=== PATIENT | female | born 1995 | race Caucasian/White ===

== ENCOUNTER 2016-08-11 10:11 | Emergency (ER) | payer SELFPAY ==
[~2016-08-11] VITALS: Ht 165.1 cm; Wt 86.2 kg
[~2016-08-11 10:11] MED LIST: mirena
[2016-08-11 10:59] LABS: BILIRUBIN,URINE NEGATIVE (NEG); GLUCOSE,URINE NEGATIVE (NEG); NITRITE,URINE NEGATIVE (NEG); PROTEIN,URINE NEGATIVE (NEG-TRACE); UROBILINOGEN,URINE 0.2 mg/dL (0.2 mg/dL)
[2016-08-11 11:15] LABS: BACTERIA,URINE 0 /HPF (0-FEW); RBC,URINE OCC /HPF (0-2); SQUAMOUS EPITHELIAL CELL,UR FEW /LPF; WBC,URINE 0 /HPF (0-4)
--- NOTE | 2016-08-11 11:46 | RAD ---
Indication abdominal pain. Nausea and vomiting. Duration of symptoms 2 days. Single view of the chest as well as flat and upright films of the abdomen were obtained. The heart, pulmonary vessels and mediastinum appear normal. The lungs are clear. There is no free air. The abdominal gas pattern is normal. No organomegaly or abnormal calculi are seen. IUD is noted. Visualized bony structures appear grossly intact. IMPRESSION: No acute or significant finding seen in the chest or abdomen on plain films
--- NOTE | 2016-08-11 11:54 | ED.ADGEN ---
Past Medical History Past Medical History: No Pertinent History Past Surgical History: Tonsillectomy Alcohol Use: Rarely Drug Use: Marijuana Adult General Chief Complaint Chief Complaint: ABDOMINAL PAIN HPI HPI Patient is a 20 year old woman, with no significant past history, who presents emergency Department with complaint of abdominal cramping and pain in the pelvic region. Patient states that she has an IUD in place, states that her periods are irregular. She denies any possibility of STI exposures. States the pain began yesterday has been intermittent since that time, described as a cramping. She completed of mild nausea, denies any vomiting, denies any diarrhea , any chest pain or shortness of breath, any fevers or chills, any urinary complaints, any flank pain. No injuries. Review of Systems Review of Systems Constitutional: Denies fever or chills. [] Eyes: Denies change in visual acuity. [] HENT: Denies nasal congestion or sore throat. [] Respiratory: Denies cough or shortness of breath. [] Cardiovascular: Denies chest pain or edema. [] GI: Abdominal pain, pelvic region, nausea, no vomiting, no diarrhea or bloody stools. I : Denies dysuria. [] Musculoskeletal: Denies back pain or joint pain. [] Integument: Denies rash. [] Neurologic: Denies headache, focal weakness or sensory changes. [] Endocrine: Denies polyuria or polydipsia. [] Lymphatic: Denies swollen glands. [] Psychiatric: Denies depression or anxiety. [] Current Medications Current Medications Current Medications Medications (Trade) Dose Ordered Sig/Huyen Start Time Stop Time Status Last Admin Dose Admin Acetaminophen (Tylenol) 650 mg 1X ONCE 08/11/16 13:15 08/11/16 13:16 DC 08/11/16 13:51 650 MG Metronidazole (Flagyl) 500 mg 1X ONCE 08/11/16 13:15 08/11/16 13:16 DC 08/11/16 13:51 500 MG Allergies Allergies Allergies Coded Allergies Type Severity Reaction Last Updated Verified No Known Drug Allergies 04/28/15 No Physical Exam Physical Exam Constitutional: Well developed, well nourished, no acute distress, non-toxic appearance. [] HENT: Normocephalic, atraumatic, bilateral external ears normal, oropharynx moist, no oral exudates, nose normal. [] Eyes: PERRLA, EOMI, conjunctiva normal, no discharge. [] Neck: Normal range of motion, no tenderness, supple, no stridor. [] Cardiovascular:Heart rate regular rhythm, no murmur, S1, S2, no rubs or gallops. [] Lungs & Thorax: Bilateral breath sounds clear to auscultation, no wheezing, rhonchi, rales. No chest or crepitus or tenderness. [] Abdomen: Bowel sounds normal, soft, mild initial patient in the pelvic region, superior pubic region, no rebound, rigidity, no guarding, no masses, no pulsatile masses. [] Skin: Warm, dry, no erythema, no rash. [] Back: No tenderness, no CVA tenderness. [] Extremities: No tenderness, no cyanosis, no clubbing, ROM intact, no edema. [] Neurologic: Alert and oriented X 3, normal motor function, normal sensory function, no focal deficits noted. [] Psychologic: Affect normal, judgement normal, mood normal. [] Pelvic examination: Patient with a normal-appearing external examination, bimanual examination reveals a closed os with an IUD in place, no CMT, no adnexal masses or tenderness identified, patient with small amount of dark blood noted in vault, consistent with early menses. Speculum examination reveals findings as above, nonfriable cervix, small amount of white discharge in addition to the menstrual bleeding, no large clots, no lacerations or other abnormalities identified. Current Patient Data Vital Signs Vital Signs Date Time Temp Pulse Resp B/P (MAP) Pulse Ox O2 Delivery O2 Flow Rate FiO2 08/11/16 13:30 66 18 117/74 (88) 99 Room Air 08/11/16 10:30 98.4 98.4 Lab Values Laboratory Tests Test 08/11/16 09:51 08/11/16 10:30 POC Urine HCG, Qualitative Hcg negative (Negative) Urine Collection Type Unknown Urine Color Kaylen Urine Clarity Clear Urine pH 7.0 Urine Specific [place] 1.015 Urine Protein Negative mg/dL (NEG-TRACE) Urine Glucose (UA) Negative mg/dL (NEG) Urine Ketones (Stick) Negative mg/dL (NEG) Urine Blood Moderate (NEG) Urine Nitrite Negative (NEG) Urine Bilirubin Negative (NEG) Urine Urobilinogen Dipstick 0.2 mg/dL (0.2 mg/dL) Urine Leukocyte Esterase Negative (NEG) Urine RBC Occ /HPF (0-2) Urine WBC 0 /HPF (0-4) Urine Squamous Epithelial Cells Few /LPF Urine Bacteria 0 /HPF (0-FEW) Microbiology 08/11/16 Wet Prep - Final, Complete EKG EKG Not indicated. [] Radiology/Procedures Radiology/Procedures [][facility] [address] [place] [address] IMAGING REPORT Signed PATIENT: OCTAVIO GUPTA ACCOUNT: [id number] : 1995 LOCATION: ER AGE: 20 SEX: F EXAM STATUS: REG ER ORD. PHYSICIAN: ERNESTO ROSE DO REASON: abd pain/n/v PROCEDURE: ACUTE ABDOMEN SERIES Indication abdominal pain. Nausea and vomiting. Duration of symptoms 2 days. Single view of the chest as well as flat and upright films of the abdomen were obtained. The heart, pulmonary vessels and mediastinum appear normal. The lungs are clear. There is no free air. The abdominal gas pattern is normal. No organomegaly or abnormal calculi are seen. IUD is noted. Visualized bony structures appear grossly intact. IMPRESSION: No acute or significant finding seen in the chest or abdomen on plain films DICTATED and SIGNED BY: MEREDITH ARAUJO MD DATE: 08/11/16 1143 CC: ERNESTO ROSE DO; NO PCP ~ Course & Med Decision Making Course & Med Decision Making Pertinent Labs and Imaging studies reviewed. (See chart for details) Patient with her menses beginning in the emergency department, which I believe is likely contributed a cramping sensation she is feeling, vital signs within normal limits, wet prep is positive for bacterial vaginosis, urinalysis negative for infection. Received acetaminophen and metronidazole in the emergency department which she tolerated without issue. Given clear and detailed return instructions medication instructions and precautions. Also given contact information for Dr. Collins DEMOLITION WORKER in order to establish follow- up. Will be contacted for cultures require follow-up, as stated she denies any concerns for STI exposure. Patient voiced understanding and agreement with plan as stated, discharged home in stable condition with plan as above. Dragon Disclaimer Dragon Disclaimer This electronic medical record was generated, in whole or in part, using a voice recognition dictation system. Departure Impression: Primary Impression: Bacterial vaginosis Disposition: HOME, SELF-CARE Condition: IMPROVED Scripts Metronidazole (METRONIDAZOLE) 500 Mg Tablet 1 TAB PO BID, #14 TAB Prov: ERNESTO ROSE DO 08/11/16 ERNESTO ROSE DO August 11, 2016 11:54
[2016-08-11] MEDS ORDERED: metroNIDAZOLE 500 MG TABLET PO ONE (13:15)
[2016-08-11] MEDS ORDERED: ACETAMINOPHEN 325 MG TABLET. PO ONE (13:15)
[2016-08-11 13:30] VITALS: BP 117/74
[2016-08-11] MEDS ORDERED: METR500T8 PO (13:41)
== END 2016-08-11 13:54 | disposition home or self-care (01) ==
LOC: ER 10:11
DX: N76.0 Acute vaginitis (principal); B96.89 Other specified bacterial agents as the cause of diseases classified elsewhere; F12.10 Cannabis abuse, uncomplicated
CPT/HCPCS: 74022; 81001; 84703; 87491; 87591; 99285; Q0111; 81025

== ENCOUNTER 2016-12-18 12:22 | Emergency (ER) | payer BC ==
[~2016-12-18 12:22] MED LIST changes: +METR500T8 PO
--- NOTE | 2016-12-18 12:32 | PHYS DOC ---
Past Medical History Past Medical History: No Pertinent History Past Surgical History: Tonsillectomy Alcohol Use: Rarely Drug Use: Marijuana Adult General Chief Complaint Chief Complaint: VOMITING IN HPI HPI Patient is a 21 year old female who presents with nausea vomiting for last 3 days. She states she is approximately 7 weeks and 3 days ago started having episodes of vomiting. She states she has dry heaves even when she is not trying to eat or drink. She denies any abdominal pain vaginal bleeding or cramps. She has never been before. She is currently on no medicines and has not tried anything for her nausea as of yet. She does have an [facility] physician as well as to see them on 23 December and she is currently taking vitamins. Review of Systems Review of Systems Constitutional: Denies fever or chills [] Eyes: Denies change in visual acuity, redness, or eye pain [] HENT: Denies nasal congestion or sore throat [] Respiratory: Denies cough or shortness of breath [] Cardiovascular: No additional information not addressed in HPI [] GI: Denies abdominal pain, bloody stools or diarrhea, positive for nausea, vomiting [] : Denies dysuria or hematuria [] Musculoskeletal: Denies back pain or joint pain [] Integument: Denies rash or skin lesions [] Neurologic: Denies headache, focal weakness or sensory changes [] Endocrine: Denies polyuria or polydipsia [] Current Medications Current Medications Current Medications Medications (Trade) Dose Ordered Sig/Huyen Start Time Stop Time Status Last Admin Dose Admin Ondansetron HCl (Zofran) 4 mg 1X ONCE 12/18/16 13:15 12/18/16 13:16 DC 12/18/16 13:20 4 MG Sodium Chloride 1,000 ml @ 1,000 mls/hr 1X ONCE 12/18/16 14:30 12/18/16 15:29 Allergies Allergies Allergies Coded Allergies Type Severity Reaction Last Updated Verified No Known Drug Allergies 04/28/15 No Physical Exam Physical Exam Constitutional: Well developed, well nourished, no acute distress, non-toxic appearance. [] HENT: Normocephalic, atraumatic, bilateral external ears normal, oropharynx moist, no oral exudates, nose normal. [] Eyes: PERRLA, EOMI, conjunctiva normal, no discharge. [] Neck: Normal range of motion, no tenderness, supple, no stridor. [] Cardiovascular:Heart rate regular rhythm, no murmur [] Lungs & Thorax: Bilateral breath sounds clear to auscultation [] Abdomen: Bowel sounds normal, soft, no tenderness, no masses, no pulsatile masses. [] Skin: Warm, dry, no erythema, no rash. [] Back: No tenderness, no CVA tenderness. [] Extremities: No tenderness, no cyanosis, no clubbing, ROM intact, no edema. [] Neurologic: Alert and oriented X 3, normal motor function, normal sensory function, no focal deficits noted. [] Psychologic: Affect normal, judgement normal, mood normal. [] Current Patient Data Vital Signs Vital Signs Date Time Temp Pulse Resp B/P (MAP) Pulse Ox O2 Delivery O2 Flow Rate FiO2 12/18/16 14:38 98.1 99 16 128/64 (85) 100 Room Air 98.1 Lab Values Laboratory Tests Test 12/18/16 12:45 12/18/16 12:48 Urine Color Yellow Urine Clarity Turbid Urine pH 7.5 Urine Specific [place] 1.020 Urine Protein Negative mg/dL (NEG-TRACE) Urine Glucose (UA) Negative mg/dL (NEG) Urine Ketones (Stick) Negative mg/dL (NEG) Urine Blood Negative (NEG) Urine Nitrite Negative (NEG) Urine Bilirubin Negative (NEG) Urine Urobilinogen Dipstick 1.0 mg/dL (0.2 mg/dL) Urine Leukocyte Esterase Negative (NEG) Urine RBC 0 /HPF (0-2) Urine WBC Occ /HPF (0-4) Urine Squamous Epithelial Cells Occ /LPF Urine Amorphous Sediment Present /HPF Urine Bacteria 0 /HPF (0-FEW) White Blood Count 12.5 x10^3/uL (4.0-11.0) H Red Blood Count 4.66 x10^6/uL (3.50-5.40) Hemoglobin 13.4 g/dL (12.0-15.5) Hematocrit 40.5 % (36.0-47.0) Mean Corpuscular Volume 87 fL (79-100) Mean Corpuscular Hemoglobin 29 pg (25-35) Mean Corpuscular Hemoglobin Concent 33 g/dL (31-37) Red Cell Distribution Width 13.4 % (11.5-14.5) Platelet Count 319 x10^3/uL (140-400) Neutrophils (%) (Auto) 62 % (31-73) Lymphocytes (%) (Auto) 31 % (24-48) Monocytes (%) (Auto) 6 % (0-9) Eosinophils (%) (Auto) 1 % (0-3) Basophils (%) (Auto) 0 % (0-3) Neutrophils # (Auto) 7.8 x10^3uL (1.8-7.7) H Lymphocytes # (Auto) 3.8 x10^3/uL (1.0-4.8) Monocytes # (Auto) 0.7 x10^3/uL (0.0-1.1) Eosinophils # (Auto) 0.1 x10^3/uL (0.0-0.7) Basophils # (Auto) 0.0 x10^3/uL (0.0-0.2) Sodium Level 139 mmol/L (136-145) Potassium Level 4.0 mmol/L (3.5-5.1) Chloride Level 102 mmol/L (98-107) Carbon Dioxide Level 27 mmol/L (21-32) Anion Gap 10 (6-14) Blood Urea Nitrogen 10 mg/dL (7-20) Creatinine 0.7 mg/dL (0.6-1.0) Estimated GFR (Cockcroft-Gault) 105.6 BUN/Creatinine Ratio 14 (6-20) Glucose Level 86 mg/dL (70-99) Calcium Level 9.1 mg/dL (8.5-10.1) Total Bilirubin 0.6 mg/dL (0.2-1.0) Aspartate Amino Transferase (AST) 19 U/L (15-37) Alanine Aminotransferase (ALT) 24 U/L (14-59) Alkaline Phosphatase 103 U/L (46-116) Total Protein 8.1 g/dL (6.4-8.2) Albumin 4.0 g/dL (3.4-5.0) Albumin/Globulin Ratio 1.0 (1.0-1.7) Laboratory Tests 12/18/16 12:48 Laboratory Tests 12/18/16 12:48 EKG EKG [] Radiology/Procedures Radiology/Procedures [] Impressions: Nausea vomiting in Course & Med Decision Making Course & Med Decision Making Pertinent Labs and Imaging studies reviewed. (See chart for details) CBC, CMP, UA nonacute. Patient felt better with Zofran and 2 L of fluids. She being discharged at this time to [id number] V6. Return precautions given. She is agreeable plan in stable condition this time. Dragon Disclaimer Dragon Disclaimer This electronic medical record was generated, in whole or in part, using a voice recognition dictation system. Departure Departure Impression: Primary Impression: Nausea/vomiting in Disposition: 01 HOME, SELF-CARE Condition: STABLE Referrals: NO PCP (PCP) Patient Instructions: Nausea and Vomiting Additional Instructions: You were seen today in the emergency department for nausea and vomiting in . Your blood work and urinalysis do not show any acute abnormalities. He felt better after received Zofran and IV fluids. Your being discharged home. Please push fluids over the next several days. Please: Reschedule your [facility] appointment CBC in the next couple days. He can take [id number] Pyridoxine , which is vitamin B6 for nausea. You can take 75 mg daily for nausea. Return the ER if you have severe uncontrolled nausea vomiting, vaginal bleeding, pain in your abdomen we have other concerns. CHEPE CALL MD Dec 18, 2016 12:32
[2016-12-18] MEDS ORDERED: IV NORMAL SALINE 1000ML BAG 1,000 ML IV ONE ×2 (13:15→14:30)
[2016-12-18] MEDS ORDERED: ONDANSETRON PF 4 MG/2 ML VIAL. IV ONE (13:15)
[2016-12-18 13:22] LABS: BASO % 0 % (0-3); EOS % 1 % (0-3); HEMATOCRIT 40.5 % (36.0-47.0); HEMOGLOBIN 13.4 g/dL (12.0-15.5); LYMPH # 3.8 x10^3/uL (1.0-4.8); LYMPH % 31 % (24-48); MEAN CORPUSCULAR HEMOGLOBIN 29 pg (25-35); MEAN CORPUSCULAR HGB CONC 33 g/dL (31-37); MEAN CORPUSCULAR VOLUME 87 fL (79-100); MONO % 6 % (0-9); NEUT % 62 % (31-73); PLATELET COUNT 319 x10^3/uL (140-400); RED BLOOD COUNT 4.66 x10^6/uL (3.50-5.40); RED CELL DISTRIBUTION WIDTH 13.4 % (11.5-14.5); WHITE BLOOD COUNT 12.5 x10^3/uL (4.0-11.0)
[2016-12-18 13:49] LABS: CALCIUM 9.1 mg/dL (8.5-10.1); CREATININE 0.7 mg/dL (0.6-1.0); GFR 105.6
[2016-12-18 13:54] LABS: TOTAL BILIRUBIN 0.6 mg/dL (0.2-1.0); TOTAL PROTEIN 8.1 g/dL (6.4-8.2)
[2016-12-18 14:00] LABS: BILIRUBIN,URINE NEGATIVE (NEG); GLUCOSE,URINE NEGATIVE (NEG); NITRITE,URINE NEGATIVE (NEG); PH,URINE 7.5; PROTEIN,URINE NEGATIVE (NEG-TRACE)
[2016-12-18 14:17] LABS: BACTERIA,URINE 0 /HPF (0-FEW); RBC,URINE 0 /HPF (0-2); SQUAMOUS EPITHELIAL CELL,UR OCC /LPF; WBC,URINE OCC /HPF (0-4)
[2016-12-18 15:35] VITALS: BP 118/59
== END 2016-12-18 15:41 | disposition home or self-care (01) ==
LOC: ER 12:22
DX: O21.9 Vomiting of pregnancy, unspecified (principal); O26.891 Other specified pregnancy related conditions, first trimester; F12.10 Cannabis abuse, uncomplicated; Z3A.01 Less than 8 weeks gestation of pregnancy
CPT/HCPCS: 36415; 80053; 81001; 81025; 85025; 96361; 96374; 99285; J2405; J7030

== ENCOUNTER 2017-01-08 14:13 | Emergency (ER) | payer BC ==
[2017-01-08] MEDS ORDERED: PROMETHAZINE IV PRN (14:30)
[2017-01-08] MEDS ORDERED: IV NORMAL SALINE 1000ML BAG 1,000 ML IV ONE (14:30)
[2017-01-08] MEDS ORDERED: DEXTROSE 5% IV PRN (14:30)
[2017-01-08] MEDS ORDERED: ONDANSETRON PF 4 MG/2 ML VIAL. IV ONE (14:30)
--- NOTE | 2017-01-08 14:36 | PHYS DOC ---
Past Medical History Past Medical History: No Pertinent History Past Surgical History: Tonsillectomy Alcohol Use: Rarely Drug Use: Marijuana Adult General Chief Complaint Chief Complaint: VOMITING IN HPI HPI Patient is a 21 year old female 1 para 0 currently 10 weeks who presents today with nausea and vomiting that has been going on intermittently during this but got worse in the last 5 days. Patient states she was seen by the PCP on December 24, 2016 for the same complaints and was started on Zofran and Reglan. Patient denies any relief from these medications. Denies any abdominal pain. Denies any fever. Denies any vaginal bleeding. Review of Systems Review of Systems Constitutional: Denies fever or chills [] Eyes: Denies change in visual acuity, redness, or eye pain [] HENT: Denies nasal congestion or sore throat [] Respiratory: Denies cough or shortness of breath [] Cardiovascular: No additional information not addressed in HPI [] GI: nausea, and vomiting, in . Denies abdominal pain, bloody stools or diarrhea [] : Denies dysuria or hematuria [] Musculoskeletal: Denies back pain or joint pain [] Integument: Denies rash or skin lesions [] Neurologic: Denies headache, focal weakness or sensory changes [] Current Medications Current Medications Current Medications Medications (Trade) Dose Ordered Sig/Huyen Start Time Stop Time Status Last Admin Dose Admin Ceftriaxone Sodium 50 ml @ 100 mls/hr 1X ONCE 01/08/17 15:45 01/08/17 16:14 Ondansetron HCl (Zofran) 4 mg 1X ONCE 01/08/17 14:30 01/08/17 14:31 DC 01/08/17 14:30 4 MG Promethazine HCl 6.25 mg/Dextrose 50.25 ml @ 150.75 mls/ hr PRN Q6HRS PRN 01/08/17 14:30 01/08/17 14:52 150.75 MLS/HR Sodium Chloride 1,000 ml @ 1,000 mls/hr 1X ONCE 01/08/17 14:30 01/08/17 15:29 DC 01/08/17 14:30 1,000 MLS/HR Allergies Allergies Allergies Coded Allergies Type Severity Reaction Last Updated Verified No Known Drug Allergies 04/28/15 No Physical Exam Physical Exam Constitutional: Well developed, well nourished, no acute distress, non-toxic appearance. [] HENT: Normocephalic, atraumatic, bilateral external ears normal, oropharynx moist, no oral exudates, nose normal. [] Eyes: PERRLA, EOMI, conjunctiva normal, no discharge. [] Neck: Normal range of motion, no tenderness, supple, no stridor. [] Cardiovascular:Heart rate regular rhythm, no murmur [] Lungs & Thorax: Bilateral breath sounds clear to auscultation [] Abdomen: Bowel sounds normal, soft, no tenderness, no masses, no pulsatile masses. Patient is actively vomiting in the ED. Skin: Warm, dry, no erythema, no rash. [] Back: No tenderness, no CVA tenderness. [] Extremities: No tenderness, no cyanosis, no clubbing, ROM intact, no edema. [] Neurologic: Alert and oriented X 3, normal motor function, normal sensory function, no focal deficits noted. [] Psychologic: Affect normal, judgement normal, mood normal. [] Current Patient Data Vital Signs Vital Signs Date Time Temp Pulse Resp B/P (MAP) Pulse Ox O2 Delivery O2 Flow Rate FiO2 01/08/17 14:54 98.0 81 18 102/81 (88) Room Air 97.0 98.0 Lab Values Laboratory Tests Test 01/08/17 14:17 01/08/17 14:22 01/08/17 14:41 Urine Collection Type Unknown Urine Color Yellow Urine Clarity Cloudy Urine pH 7.0 Urine Specific [place] 1.025 Urine Protein Negative mg/dL (NEG-TRACE) Urine Glucose (UA) Negative mg/dL (NEG) Urine Ketones (Stick) 40 mg/dL (NEG) Urine Blood Negative (NEG) Urine Nitrite Negative (NEG) Urine Bilirubin Negative (NEG) Urine Urobilinogen Dipstick 1.0 mg/dL (0.2 mg/dL) Urine Leukocyte Esterase Small (NEG) Urine RBC 0 /HPF (0-2) Urine WBC 0 /HPF (0-4) Urine Squamous Epithelial Cells Many /LPF Urine Amorphous Sediment Present /HPF Urine Bacteria 0 /HPF (0-FEW) Urine Mucus Marked /LPF POC Urine HCG, Qualitative Hcg positive (Negative) White Blood Count 11.8 x10^3/uL (4.0-11.0) H Red Blood Count 4.60 x10^6/uL (3.50-5.40) Hemoglobin 12.9 g/dL (12.0-15.5) Hematocrit 39.2 % (36.0-47.0) Mean Corpuscular Volume 85 fL (79-100) Mean Corpuscular Hemoglobin 28 pg (25-35) Mean Corpuscular Hemoglobin Concent 33 g/dL (31-37) Red Cell Distribution Width 13.2 % (11.5-14.5) Platelet Count 279 x10^3/uL (140-400) Neutrophils (%) (Auto) 70 % (31-73) Lymphocytes (%) (Auto) 25 % (24-48) Monocytes (%) (Auto) 5 % (0-9) Eosinophils (%) (Auto) 0 % (0-3) Basophils (%) (Auto) 0 % (0-3) Neutrophils # (Auto) 8.2 x10^3uL (1.8-7.7) H Lymphocytes # (Auto) 3.0 x10^3/uL (1.0-4.8) Monocytes # (Auto) 0.6 x10^3/uL (0.0-1.1) Eosinophils # (Auto) 0.0 x10^3/uL (0.0-0.7) Basophils # (Auto) 0.0 x10^3/uL (0.0-0.2) Sodium Level 139 mmol/L (136-145) Potassium Level 3.7 mmol/L (3.5-5.1) Chloride Level 101 mmol/L (98-107) Carbon Dioxide Level 26 mmol/L (21-32) Anion Gap 12 (6-14) Blood Urea Nitrogen 8 mg/dL (7-20) Creatinine 0.5 mg/dL (0.6-1.0) L Estimated GFR (Cockcroft-Gault) 155.7 BUN/Creatinine Ratio 16 (6-20) Glucose Level 94 mg/dL (70-99) Calcium Level 9.6 mg/dL (8.5-10.1) Total Bilirubin 0.8 mg/dL (0.2-1.0) Aspartate Amino Transferase (AST) 16 U/L (15-37) Alanine Aminotransferase (ALT) 18 U/L (14-59) Alkaline Phosphatase 84 U/L (46-116) Total Protein 8.3 g/dL (6.4-8.2) H Albumin 3.8 g/dL (3.4-5.0) Albumin/Globulin Ratio 0.8 (1.0-1.7) L Lipase 101 U/L (73-393) Laboratory Tests 01/08/17 14:41 Laboratory Tests 01/08/17 14:41 EKG EKG [] Radiology/Procedures Radiology/Procedures [] Course & Med Decision Making Course & Med Decision Making Pertinent Labs and Imaging studies reviewed. (See chart for details) This is a 21-year-old female patient presenting to the ED today with nausea and vomiting associated with . She is a 1 para 0. She is currently 10 weeks . CBC with a WBC of 11.8, CMP would not acute findings, urine has small amount of UTI. She was given IV fluids, Compazine and promethazine. Her vomiting has stopped. She feels better. She was given Rocephin and discharged. She was discharged with Compazine and promethazine. She was also discharged with cephalexin. She was instructed to follow-up with her own [employer] on Wednesday. Dragon Disclaimer Dragon Disclaimer This electronic medical record was generated, in whole or in part, using a voice recognition dictation system. Departure Departure Impression: Primary Impression: Hyperemesis gravidarum Additional Impression: UTI (urinary tract infection) Disposition: 01 HOME, SELF-CARE Condition: STABLE Referrals: UNKNOWN PCP NAME (PCP) follow up with your OBGYN on Wednesday Patient Instructions: Diet - Hyperemesis Gravidarum, Hyperemesis Gravidarum, - Urinary Tract Infection Additional Instructions: You were seen for nausea and vomiting in . We put you Compazine and promethazine. Take them as needed for nausea/ vomiting. You also have urinary tract infection. Complete your antibiotics. Contact your [employer] MANAGER on Wednesday and set up a follow-up appointment for follow up. Scripts Promethazine Hcl (PROMETHAZINE HCL) 25 Mg Tablet 1 TAB PO PRN Q6HRS, #30 TAB Prov: MUTUNGA,MARLENY PHOTOENGRAVING APPRENTICE 01/08/17 Prochlorperazine Maleate (Compazine) 10 Mg Tablet 10 MG PO Q8HRS, #30 TAB Prov: MUTUNGA,MARLENY PHOTOENGRAVING APPRENTICE 01/08/17 Cephalexin (CEPHALEXIN) 500 Mg Tablet 1 TAB PO BID, #14 TAB Prov: MARLENY WOODARD APRN 01/08/17 Problem Qualifiers Additional Impression: UTI (urinary tract infection) Urinary tract infection type: site unspecified Hematuria presence: without hematuria Qualified Codes: N39.0 - Urinary tract infection, site not specified MARLENY WOODARD APRN Jan 08, 2017 14:36
[2017-01-08 14:38] LABS: BILIRUBIN,URINE NEGATIVE (NEG); GLUCOSE,URINE NEGATIVE (NEG); NITRITE,URINE NEGATIVE (NEG); PROTEIN,URINE NEGATIVE (NEG-TRACE)
[2017-01-08 14:46] LABS: BACTERIA,URINE 0 /HPF (0-FEW); RBC,URINE 0 /HPF (0-2); WBC,URINE 0 /HPF (0-4)
[2017-01-08 14:47] LABS: SQUAMOUS EPITHELIAL CELL,UR MANY /LPF
[2017-01-08 14:49] LABS: BASO % 0 % (0-3); EOS % 0 % (0-3); HEMATOCRIT 39.2 % (36.0-47.0); HEMOGLOBIN 12.9 g/dL (12.0-15.5); LYMPH % 25 % (24-48); MEAN CORPUSCULAR HEMOGLOBIN 28 pg (25-35); MEAN CORPUSCULAR HGB CONC 33 g/dL (31-37); MEAN CORPUSCULAR VOLUME 85 fL (79-100); MONO % 5 % (0-9); NEUT % 70 % (31-73); PLATELET COUNT 279 x10^3/uL (140-400); RED CELL DISTRIBUTION WIDTH 13.2 % (11.5-14.5); WHITE BLOOD COUNT 11.8 x10^3/uL (4.0-11.0)
[2017-01-08 15:04] LABS: CALCIUM 9.6 mg/dL (8.5-10.1); CREATININE 0.5 mg/dL (0.6-1.0); GFR 155.7; POTASSIUM 3.7 mmol/L (3.5-5.1)
[2017-01-08 15:11] LABS: ALBUMIN 3.8 g/dL (3.4-5.0); ALBUMIN/GLOBULIN RATIO 0.8 (1.0-1.7); TOTAL BILIRUBIN 0.8 mg/dL (0.2-1.0); TOTAL PROTEIN 8.3 g/dL (6.4-8.2)
[2017-01-08] MEDS ORDERED: CEPH500T PO (15:59)
[2017-01-08] MEDS ORDERED: PROM25TA10 PO (16:03)
[2017-01-08] MEDS ORDERED: PROC10TA57 PO (16:03)
[2017-01-08 16:50] VITALS: BP 105/51
[2017-01-18] MEDS ORDERED: NITR100C62 PO (22:39)
[2017-01-18] MEDS ORDERED: ONDA4TAB11 PO (22:39)
== END 2017-01-08 16:58 | disposition home or self-care (01) ==
LOC: ER 14:13
DX: O21.0 Mild hyperemesis gravidarum (principal); O23.41 Unspecified infection of urinary tract in pregnancy, first trimester; Z3A.10 10 weeks gestation of pregnancy
CPT/HCPCS: 36415; 80053; 81001; 81025; 83690; 85025; 87086; 96365; 96367; 96375; 99284; J0690; J2405; J2550; J7030

== ENCOUNTER 2017-04-29 15:38 | Emergency (ER) | payer BC, OTHER | END 2017-04-29 16:30 | disposition home or self-care (01) | LOC: ER 16:30 | DX: O9A.212 Injury, poisoning and certain other consequences of external causes complicating pregnancy, second trimester (principal); L98.8 Other specified disorders of the skin and subcutaneous tissue; T63.441A Toxic effect of venom of bees, accidental (unintentional), initial encounter; Z3A.26 26 weeks gestation of pregnancy; Y92.89 Other specified places as the place of occurrence of the external cause | CPT/HCPCS: 99281 ==

== ENCOUNTER 2017-09-23 12:11 | Emergency (ER) | payer BC, OTHER ==
[2017-09-23 12:40] LABS: URINE HCG POC HCG NEGATIVE (Negative)
[2017-09-23 12:49] LABS: BILIRUBIN,URINE NEGATIVE (NEG); CLARITY,URINE CLEAR; COLOR,URINE YELLOW; GLUCOSE,URINE NEGATIVE (NEG); NITRITE,URINE NEGATIVE (NEG); PROTEIN,URINE NEGATIVE (NEG-TRACE)
[2017-09-23] MEDS: IV NORMAL SALINE 1000ML BAG 1,000 ML IV (13:00)
[2017-09-23 13:01] LABS: BACTERIA,URINE FEW /HPF (0-FEW)
[2017-09-23 13:02] LABS: SQUAMOUS EPITHELIAL CELL,UR MOD /LPF
[2017-09-23 15:19] LABS: ADD MAN DIFF? NO
[2017-09-23 15:25] LABS: BASO % 0 % (0-3); EOS # 0.1 x10^3/uL (0.0-0.7); EOS % 1 % (0-3); HEMATOCRIT 35.2 % (36.0-47.0); HEMOGLOBIN 11.6 g/dL (12.0-15.5); LYMPH # 3.5 x10^3/uL (1.0-4.8); LYMPH % 40 % (24-48); MEAN CORPUSCULAR HEMOGLOBIN 27 pg (25-35); MEAN CORPUSCULAR HGB CONC 33 g/dL (31-37); MEAN CORPUSCULAR VOLUME 82 fL (79-100); MONO # 0.5 x10^3/uL (0.0-1.1); MONO % 6 % (0-9); NEUT # 4.7 x10^3uL (1.8-7.7); NEUT % 53 % (31-73); PLATELET COUNT 308 x10^3/uL (140-400); RED BLOOD COUNT 4.31 x10^6/uL (3.50-5.40); WHITE BLOOD COUNT 8.8 x10^3/uL (4.0-11.0)
[2017-09-23 15:35] LABS: ANION GAP 6 (6-14); BLOOD UREA NITROGEN 11 mg/dL (7-20); BUN/CREATININE RATIO 18 (6-20); CALCIUM 8.6 mg/dL (8.5-10.1); CARBON DIOXIDE 22 mmol/L (21-32); CHLORIDE 105 mmol/L (98-107); CREATININE 0.6 mg/dL (0.6-1.0); GLUCOSE 86 mg/dL (70-99); POTASSIUM 3.8 mmol/L (3.5-5.1); SODIUM 133 mmol/L (136-145)
[2017-09-23 15:50] LABS: ALBUMIN 3.6 g/dL (3.4-5.0); ALBUMIN/GLOBULIN RATIO 0.9 (1.0-1.7); ALK PHOS 107 U/L (46-116); ALT (SGPT) 16 U/L (14-59); AST (SGOT) 21 U/L (15-37); LIPASE 101 U/L (73-393); TOTAL BILIRUBIN 0.6 mg/dL (0.2-1.0); TOTAL PROTEIN 7.8 g/dL (6.4-8.2)
[2017-09-23] MEDS: fentaNYL PF VIAL 100 MCG/2 ML VIAL IV (16:31)
[2017-09-23] MEDS: ONDANSETRON PF 4 MG/2 ML VIAL. IV (16:32)
== END 2017-09-23 17:26 | disposition home or self-care (01) ==
LOC: ER 17:26
DX: K80.20 Calculus of gallbladder without cholecystitis without obstruction (principal)
CPT/HCPCS: 36415; 76705; 80053; 81001; 81025; 83690; 85025; 87086; 96361; 96374; 96375; 99285-25; J2405; J3010; J7030

== ENCOUNTER → 2017-10-07 | Day surgery (SDC) | payer BC, OTHER ==
[~2017-10-07] MED LIST changes: +DEXAMETHASONE SOD PHOS 20 MG/5 ML VIAL.; +GLYCOPYRROLATE 1 MG/5 ML VIAL.; +IOHEXOL 300 MG/ML 100ML VIAL.; +LIDOCAINE 1% PF 2 ML VIAL. ID; +LIDOCAINE 2% PF Vial for OR 5 ML VIAL.; -METR500T8 PO; +MIDAZOLAM HCL/PF 2 MG/2 ML VIAL.; +NEOSTIGMINE METHYLSULFATE 5 MG/5 ML SYRINGE.; +ONDANSETRON PF 4 MG/2 ML VIAL.; +ONDANSETRON PF 4 MG/2 ML VIAL. IV; +PROPOFOL 20 ML IV; +ROCURONIUM 50 MG/5 ML VIAL.; +SEVOFLURANE 31 TO 60 MINUTES. IH; +SURGICEL HEMOSTAT 4X8 EACH.; +ceFAZolin 2GM PREMIX 2 GM/50 ML BAG IV; +fentaNYL PF VIAL 100 MCG/2 ML VIAL IV; +fentaNYL PF VIAL 250 MCG/5 ML VIAL; -mirena; +oxyCODONE/APAP 5/325 1 TAB TABLET PO
[2017-10-07] MEDS: IV RINGERS,LACTATED 1000ML 1,000 ML IV (07:25)
[2017-10-07] MEDS: BUPIVACAINE-EPI 0.25%-1:200000 50 ML VIAL. (08:49)
[2017-10-07] MEDS: fentaNYL PF VIAL 100 MCG/2 ML VIAL IV ×4 (08:56→09:33)
[2017-10-07] MEDS: MORPHINE SULFATE 2 MG/ML DISP.SYRIN. IV (09:09)
[2017-10-07] MEDS: PROCHLORPERAZINE 10 MG/2 ML VIAL. IV (09:15)
[2017-10-07 09:41] LABS: NEG OBC UR NEG; POS OBC UR POS
[2017-10-07 09:42] LABS: U PREG PATIENT NEGATIVE (NEG)
[2017-10-07] MEDS: oxyCODONE/APAP 5/325 1 TAB TABLET PO (10:21)
== END | disposition home or self-care (01) ==
LOC: ENDOS 06:33
DX: K80.10 Calculus of gallbladder with chronic cholecystitis without obstruction (principal)
CPT/HCPCS: 47562; 81025; J0690; J0780; J1100; J2001; J2250; J2270; J2405; J2704; J2710; J3010; J3490; J7030; J7120; Q9967

== ENCOUNTER 2018-05-04 00:51 | Emergency (ER) | payer BC ==
[~2018-05-04] VITALS: Ht 172.7 cm; Wt 102.5 kg
[~2018-05-04 00:51] MED LIST changes: +BENZ100C PO; +CEPH500T PO; -DEXAMETHASONE SOD PHOS 20 MG/5 ML VIAL.; -GLYCOPYRROLATE 1 MG/5 ML VIAL.; +HYDR-3164 PO; -IOHEXOL 300 MG/ML 100ML VIAL.; -LIDOCAINE 1% PF 2 ML VIAL. ID; -LIDOCAINE 2% PF Vial for OR 5 ML VIAL.; +METR-34 PO; -MIDAZOLAM HCL/PF 2 MG/2 ML VIAL.; -NEOSTIGMINE METHYLSULFATE 5 MG/5 ML SYRINGE.; +NITR100C62 PO; +ONDA4TAB10 SL; +ONDA4TAB11 PO; -ONDANSETRON PF 4 MG/2 ML VIAL.; -ONDANSETRON PF 4 MG/2 ML VIAL. IV; +OXYC1TAB15 PO; +PRED50TA PO; +PROC10TA57 PO; +PROM25TA10 PO; -PROPOFOL 20 ML IV; -ROCURONIUM 50 MG/5 ML VIAL.; -SEVOFLURANE 31 TO 60 MINUTES. IH; -SURGICEL HEMOSTAT 4X8 EACH.; +VENTOLIN HFA18 GM INH; -ceFAZolin 2GM PREMIX 2 GM/50 ML BAG IV; -fentaNYL PF VIAL 100 MCG/2 ML VIAL IV; -fentaNYL PF VIAL 250 MCG/5 ML VIAL; +mirena; -oxyCODONE/APAP 5/325 1 TAB TABLET PO
[2018-05-04] MEDS ORDERED: IV NORMAL SALINE 1000ML BAG 1,000 ML IV ONE (01:30)
[2018-05-04] MEDS ORDERED: FAMOTIDINE 20 MG/2 ML VIAL IVP ONE (01:30)
[2018-05-04] MEDS ORDERED: ONDANSETRON PF 4 MG/2 ML VIAL. IV ONE (01:30)
[2018-05-04 01:46] LABS: CREATININE 0.8 mg/dL (0.6-1.0); GFR 89.7; POTASSIUM 3.7 mmol/L (3.5-5.1)
[2018-05-04 01:52] LABS: ALBUMIN/GLOBULIN RATIO 0.9 (1.0-1.7); TOTAL BILIRUBIN 0.5 mg/dL (0.2-1.0); TOTAL PROTEIN 8.6 g/dL (6.4-8.2)
[2018-05-04 01:55] LABS: BILIRUBIN,URINE NEGATIVE (NEG); CLARITY,URINE CLEAR; COLOR,URINE YELLOW; NITRITE,URINE NEGATIVE (NEG); PROTEIN,URINE 30 mg/dL (NEG-TRACE)
[2018-05-04 01:56] LABS: BASO % 0 % (0-3); EOS % 0 % (0-3); HEMATOCRIT 39.7 % (36.0-47.0); HEMOGLOBIN 12.7 g/dL (12.0-15.5); LYMPH # 1.4 x10^3/uL (1.0-4.8); LYMPH % 20 % (24-48); MEAN CORPUSCULAR HEMOGLOBIN 26 pg (25-35); MEAN CORPUSCULAR HGB CONC 32 g/dL (31-37); MEAN CORPUSCULAR VOLUME 81 fL (79-100); MONO # 0.8 x10^3/uL (0.0-1.1); MONO % 11 % (0-9); NEUT % 69 % (31-73); PLATELET COUNT 258 x10^3/uL (140-400); RED BLOOD COUNT 4.91 x10^6/uL (3.50-5.40); WHITE BLOOD COUNT 7.3 x10^3/uL (4.0-11.0)
[2018-05-04] MEDS ORDERED: ACETAMINOPHEN 325 MG TABLET. PO ONE (02:00)
[2018-05-04 02:07] LABS: INFLUENZA A PATIENT POSITIVE (NEGATIVE); INFLUENZA B PATIENT NEGATIVE (NEGATIVE)
[2018-05-04] MEDS ORDERED: ONDA4TAB7 PO (02:09)
[2018-05-04] MEDS ORDERED: HYDR-2761 PO (02:10)
[2018-05-04 02:13] LABS: BACTERIA,URINE MODERATE /HPF (0-FEW); RBC,URINE 0 /HPF (0-2); SQUAMOUS EPITHELIAL CELL,UR MOD /LPF
[2018-05-04 02:32] VITALS: BP 128/66
--- NOTE | 2018-05-07 21:41 | PHYS DOC ---
Past Medical History Past Medical History: No Pertinent History Past Surgical History: Cholecystectomy, Tonsillectomy, Other Additional Past Surgical Histo: adenoids Alcohol Use: Occasionally Drug Use: None, Marijuana Adult General Chief Complaint Chief Complaint: NAUSEA/VOMITING/DIARRHA HPI HPI Patient is a 22 year old female presents with her, body aches, chills, cough, nausea vomiting. Symptom onset 3 days prior to ED arrival. No dizziness, headache, shortness of breath or wheezing. No other acute symptoms or complaints. [] Review of Systems Review of Systems Review symptoms as per history of present illness. All other review symptoms are negative. All other systems were reviewed and found to be within normal limits, except as documented in this note. Current Medications Current Medications Current Medications Medications (Trade) Dose Ordered Sig/Huyen Start Time Stop Time Status Last Admin Dose Admin Acetaminophen (Tylenol) 650 mg 1X ONCE 05/04/18 02:00 05/04/18 02:01 DC 05/04/18 02:01 650 MG Famotidine (Pepcid Vial) 20 mg 1X ONCE 05/04/18 01:30 05/04/18 01:31 DC 05/04/18 01:53 20 MG Ondansetron HCl (Zofran) 8 mg 1X ONCE 05/04/18 01:30 05/04/18 01:31 DC 05/04/18 01:51 8 MG Sodium Chloride 1,000 ml @ 1,000 mls/hr 1X ONCE 05/04/18 01:30 05/04/18 02:29 DC 05/04/18 01:57 1,000 MLS/HR Allergies Allergies Allergies Coded Allergies Type Severity Reaction Last Updated Verified No Known Drug Allergies 10/07/17 No Physical Exam Physical Exam Constitutional: Well developed, well nourished, no acute distress, non-toxic appearance. [] HENT: Normocephalic, atraumatic, bilateral external ears normal, oropharynx moist, no oral exudates, nose normal. [] Eyes: PERRLA, EOMI, conjunctiva normal, no discharge. [] Neck: Normal range of motion, no tenderness, supple, no stridor. [] Cardiovascular:Heart rate regular rhythm, no murmur [] Lungs & Thorax: Bilateral breath sounds clear to auscultation [] Abdomen: Bowel sounds normal, soft, nondistended, increased bowel sounds diffuse lower abdominal cramping, pain, no focal tenderness. [] Skin: Warm, dry, no erythema, no rash. [] Back: No tenderness, no CVA tenderness. [] Extremities: No tenderness, no cyanosis, no clubbing, ROM intact, no edema. [] Neurologic: Alert and oriented X 3, normal motor function, normal sensory function, no focal deficits noted. [] Psychologic: Affect normal, judgement normal, mood normal. [] Current Patient Data Vital Signs Vital Signs Date Time Temp Pulse Resp B/P (MAP) Pulse Ox O2 Delivery O2 Flow Rate FiO2 05/04/18 02:32 88 20 128/66 (86) 99 Room Air 05/04/18 01:00 101.1 101.1 Lab Values Laboratory Tests Test 05/04/18 01:05 05/04/18 01:09 05/04/18 01:15 05/04/18 01:16 Urine Collection Type Unknown Urine Color Yellow Urine Clarity Clear Urine pH 6.0 Urine Specific [place] >=1.030 Urine Protein 30 mg/dL (NEG-TRACE) Urine Glucose (UA) Negative mg/dL (NEG) Urine Ketones (Stick) Negative mg/dL (NEG) Urine Blood Negative (NEG) Urine Nitrite Negative (NEG) Urine Bilirubin Negative (NEG) Urine Urobilinogen Dipstick 1.0 mg/dL (0.2 mg/dL) Urine Leukocyte Esterase Negative (NEG) Urine RBC 0 /HPF (0-2) Urine WBC 1-4 /HPF (0-4) Urine Squamous Epithelial Cells Mod /LPF Urine Bacteria Moderate /HPF (0-FEW) Urine Mucus Mod /LPF POC Urine HCG, Qualitative Hcg negative (Negative) White Blood Count 7.3 x10^3/uL (4.0-11.0) Red Blood Count 4.91 x10^6/uL (3.50-5.40) Hemoglobin 12.7 g/dL (12.0-15.5) Hematocrit 39.7 % (36.0-47.0) Mean Corpuscular Volume 81 fL (79-100) Mean Corpuscular Hemoglobin 26 pg (25-35) Mean Corpuscular Hemoglobin Concent 32 g/dL (31-37) Red Cell Distribution Width 16.0 % (11.5-14.5) H Platelet Count 258 x10^3/uL (140-400) Neutrophils (%) (Auto) 69 % (31-73) Lymphocytes (%) (Auto) 20 % (24-48) L Monocytes (%) (Auto) 11 % (0-9) H Eosinophils (%) (Auto) 0 % (0-3) Basophils (%) (Auto) 0 % (0-3) Neutrophils # (Auto) 5.0 x10^3uL (1.8-7.7) Lymphocytes # (Auto) 1.4 x10^3/uL (1.0-4.8) Monocytes # (Auto) 0.8 x10^3/uL (0.0-1.1) Eosinophils # (Auto) 0.0 x10^3/uL (0.0-0.7) Basophils # (Auto) 0.0 x10^3/uL (0.0-0.2) Sodium Level 138 mmol/L (136-145) Potassium Level 3.7 mmol/L (3.5-5.1) Chloride Level 100 mmol/L (98-107) Carbon Dioxide Level 25 mmol/L (21-32) Anion Gap 13 (6-14) Blood Urea Nitrogen 10 mg/dL (7-20) Creatinine 0.8 mg/dL (0.6-1.0) Estimated GFR (Cockcroft-Gault) 89.7 BUN/Creatinine Ratio 13 (6-20) Glucose Level 95 mg/dL (70-99) Calcium Level 9.0 mg/dL (8.5-10.1) Total Bilirubin 0.5 mg/dL (0.2-1.0) Aspartate Amino Transferase (AST) 22 U/L (15-37) Alanine Aminotransferase (ALT) 18 U/L (14-59) Alkaline Phosphatase 120 U/L (46-116) H Total Protein 8.6 g/dL (6.4-8.2) H Albumin 4.0 g/dL (3.4-5.0) Albumin/Globulin Ratio 0.9 (1.0-1.7) L Influenza Type A Antigen Positive (NEGATIVE) Influenza Type B Antigen Negative (NEGATIVE) Laboratory Tests 05/04/18 01:15 Laboratory Tests 05/04/18 01:15 Microbiology 05/04/18 Urine Culture - Final, Complete 05/04/18 Urine Culture Result 1 (JUD) - Final, Complete EKG EKG [] Radiology/Procedures Radiology/Procedures [] Course & Med Decision Making Course & Med Decision Making Pertinent Labs and Imaging studies reviewed. (See chart for details) Nguyen, exam consistent with flulike illness. Recommend supportive care waiting and PCP follow-up] Puneet Disclaimer Puneet Disclaimer This electronic medical record was generated, in whole or in part, using a voice recognition dictation system. Departure Departure Impression: Primary Impression: Nausea and vomiting Additional Impression: Influenza A Disposition: HOME, SELF-CARE Condition: GOOD Patient Instructions: Abdominal Pain (Nonspecific), Nausea and Vomiting, Easy- to-Read Additional Instructions: Please go home and rest. Take medications as directed and follow up with your PCP in 3-5 days if symptoms persist. Scripts Hydrocodone Bit/Acetaminophen (HYDROCODONE-APAP 5-325 ) 1 Tab Tablet 1 TAB PO PRN Q6HRS PRN for PAIN for 3 Days, #10 TAB 0 Refills Prov: SERAFIN CARTER DO 05/04/18 Ondansetron Hcl (ZOFRAN) 4 Mg Tablet 1 TAB PO Q6HRS, #10 TAB Prov: SERAFIN CARTER DO 05/04/18 Problem Qualifiers SERAFIN CARTER DO May 07, 2018 21:41
== END 2018-05-04 02:49 | disposition home or self-care (01) ==
LOC: ER 00:51
DX: J11.1 Influenza due to unidentified influenza virus with other respiratory manifestations (principal); R11.2 Nausea with vomiting, unspecified; M79.18 Myalgia, other site; R68.83 Chills (without fever); R10.31 Right lower quadrant pain; R10.32 Left lower quadrant pain; Z90.89 Acquired absence of other organs; Z90.49 Acquired absence of other specified parts of digestive tract
CPT/HCPCS: 36415; 80053; 81001; 81025; 85025; 87086; 87804; 96361; 96374; 96375; 99283; J2405; J3490; J7030; 99284

== ENCOUNTER 2019-03-18 14:42 | Emergency (ER) | payer BC ==
[~2019-03-18] VITALS: Ht 165.1 cm; Wt 104.3 kg
[~2019-03-18 14:42] MED LIST changes: +HYDR-2761 PO; +ONDA4TAB7 PO
[2019-03-18 14:58] VITALS: BP 139/85
--- NOTE | 2019-03-18 15:34 | RAD ---
Three-view right ankle radiographs 03/10/2019 CLINICAL HISTORY: Twisting injury to the right ankle. AP, lateral and oblique digital radiographs of right ankle were obtained. The right ankle mortise is intact. No fracture or dislocation of the right ankle is seen. IMPRESSION: No fracture or dislocation of the right ankle is seen. Electronically signed by: Gigi Bettencourt MD (03/18/2019 3:31 PM) [facility] [place]
--- NOTE | 2019-03-18 15:48 | PHYS DOC ---
Past Medical History Past Medical History: No Pertinent History (MARLENY WOODARD APRN) Past Surgical History: Cholecystectomy, Tonsillectomy, Other Additional Past Surgical Histo: adenoids (MARLENY WOODARD APRN) Alcohol Use: Occasionally Drug Use: Marijuana (MARLENY WOODARD APRN) Adult General Chief Complaint Chief Complaint: ANKLE PROBLEM HPI HPI Patient is a 23 year old female who presents to the ED today complaining of mild intermittent right ankle pain that began 2-3 days ago after she stepped down and twisted her ankle. Patient states the pain is worse on range of motion. Denies anything specifically relieving the pain. She also wants her umbilicus checked, she states she had laparoscopic cholecystectomy done a year ago and occasionally she notes discharge from the umbilicus. Patient denies any discharge today. Denies any fever. Denies any abdominal pain nausea vomiting. (MARLENY WOODARD APRN) Review of Systems Review of Systems Constitutional: Denies fever or chills [] GI: Drainage from the umbilicus. Denies abdominal pain, nausea, vomiting, bloody stools or diarrhea [] : Denies dysuria or hematuria [] Musculoskeletal: Reports right ankle pain Integument: Denies rash or skin lesions [] Neurologic: Denies headache, focal weakness or sensory changes [] All other systems were reviewed and found to be within normal limits, except as documented in this note. (MARLENY WOODARD APRN) Allergies Allergies Allergies Coded Allergies Type Severity Reaction Last Updated Verified No Known Drug Allergies 10/07/17 No (VINAY COSTA DO) Physical Exam Physical Exam Constitutional: Well developed, well nourished, no acute distress, non-toxic appearance. [] Abdomen: Rounded abdomen, no drainage noted at the umbilicus. Bowel sounds normal, soft, no tenderness, no masses, no pulsatile masses. [] Skin: Warm, dry, no erythema, no rash. [] Back: No tenderness, no CVA tenderness. [] Extremities: Right ankle with no obvious edema, no bruising, no ecchymosis, slight tenderness on palpation of the right lateral ankle. Full range of motion to the right ankle. +2 right pedal pulse. Cap refill less than 2 seconds the right toes. Neurologic: Alert and oriented X 3, normal motor function, normal sensory function, no focal deficits noted. [] Psychologic: Affect normal, judgement normal, mood normal. [] (MARLENY WOODARD APRN) Current Patient Data Vital Signs Vital Signs Date Time Temp Pulse Resp B/P (MAP) Pulse Ox O2 Delivery O2 Flow Rate FiO2 03/18/19 14:58 98.1 99 14 139/85 (103) 99 Room Air 98.1 (COSTAVINAY Tate DO) EKG EKG [] (MARLENY WOODARD APRN) Radiology/Procedures Radiology/Procedures []PROCEDURE: ANKLE RIGHT 3V Three-view right ankle radiographs 03/10/2019 CLINICAL HISTORY: Twisting injury to the right ankle. AP, lateral and oblique digital radiographs of right ankle were obtained. The right ankle mortise is intact. No fracture or dislocation of the right ankle is seen. IMPRESSION: No fracture or dislocation of the right ankle is seen. Electronically signed by: Gigi Bettencourt MD (03/18/2019 3:31 PM) [facility] [place] DICTATED and SIGNED BY: GIGI BETTENCOURT MD DATE: 03/18/19 153 (MARLENY WOODARD APRN) Course & Med Decision Making Course & Med Decision Making Pertinent Labs and Imaging studies reviewed. (See chart for details) This is a 23-year-old female patient presented to the ED today with right ankle pain that began a couple days ago after she rolled her ankle. Right ankle x-rays interpreted by radiologist are negative, OTC Marquez wrap recommended. Ice elevation encouraged. OTC pain relievers. Follow-up with orthopedic doctor. She was also complaining of drainage around the umbilicus, no drainage is noted. She was given a general surgeon to follow-up with as needed. (MARLENY WOODARD APRN) Dragon Disclaimer Dragon Disclaimer This electronic medical record was generated, in whole or in part, using a voice recognition dictation system. (MARLENY WOODARD APRN) Departure Departure Impression: Primary Impression: Right ankle sprain Disposition: 01 HOME, SELF-CARE Condition: STABLE Referrals: NO PCP (PCP) JYOTI SEWELL MD Follow-up in 1-2 weeks PATRICIA DAVID MD follow up with the general surgeon for umbilicus issues Patient Instructions: Ankle Sprain Additional Instructions: You have right ankle sprain, try to ice and elevate the extremity. You can take [id number] pain relievers as needed. Please follow-up with the provided orthopedic doctor in 1-2 weeks if pain persists. Follow-up with the general surgeon provided if you are still having issues with umbilical drainage. Attending Signature Attending Signature I have reviewed the PA/NUCLEAR MEDICINE OFFICER's note and plan of care. I was available for consultation as needed during the patient's visit in the emergency department. I agree with the clinical impression, plan, and disposition. (VINAY COSTA DO) Problem Qualifiers Primary Impression: Right ankle sprain Encounter type: initial encounter Involved ligament of ankle: unspecified ligament Qualified Codes: S93.401A - Sprain of unspecified ligament of right ankle, initial encounter MARLENY WOODARD APRN Mar 18, 2019 15:48 VINAY COSTA DO Mar 18, 2019 17:50
== END 2019-03-18 15:52 | disposition home or self-care (01) ==
LOC: ER 14:42
DX: S93.401A Sprain of unspecified ligament of right ankle, initial encounter (principal); F12.90 Cannabis use, unspecified, uncomplicated; Z90.89 Acquired absence of other organs; Z90.49 Acquired absence of other specified parts of digestive tract; X50.9XXA Other and unspecified overexertion or strenuous movements or postures, initial encounter; Y93.89 Activity, other specified; Y92.89 Other specified places as the place of occurrence of the external cause; Y99.8 Other external cause status
CPT/HCPCS: 73610; 99284

== ENCOUNTER 2019-07-14 07:43 | Emergency (ER) | payer BC ==
[~2019-07-14] VITALS: Ht 167.6 cm; Wt 104.5 kg
[~2019-07-14 07:43] MED LIST changes: +ONDA-84 PO; -ONDA4TAB11 PO
--- NOTE | 2019-07-14 08:06 | PHYS DOC ---
Past Medical History Past Medical History: No Pertinent History Past Surgical History: Cholecystectomy, Tonsillectomy, Other Additional Past Surgical Histo: adenoids Smoking Status: Never Smoker Alcohol Use: Occasionally Drug Use: Marijuana General Adult EDM: Chief Complaint: FLANK PAIN HPI: HPI: 23-year-old female presenting the emergency department today with abdominal pain in the right lower quadrant. Sharp shooting pain is been going on for a few days. It comes and goes. She also complains of pain in the back. She has a history of a cholecystectomy about a year ago. She denies vomiting or fevers. She denies changes in bowels. She denies dysuria but does have a history of a bladder infection. Review of systems is negative for chest pain shortness of breath fevers chills headache. All other review of systems is negative unless otherwise noted in history of present illness. ED course: 23-year-old female presenting with right lower quadrant abdominal pain. Labs and CT abdomen pelvis are negative here. Patient was given IV Toradol for pain relief. Will discharge patient home to follow-up with PCP in 1 to 2 days for repeat abdominal exam. The patient has been examined and was not found to have an emergency medical condition. The patient was then discharged home in stable condition to follow up with their primary care physician over the next 1-2 days. They were to return if their symptoms worsened or if they were concerned for any reason. They were also instructed to return to the emergency department if they were unable to get the recommended and appropriate follow-up. [id number] discharge instructions and return precautions were given. Patient's questions were answered to their satisfaction. Patient is comfortable with plan. PPE statement: I used a face shield, and 95 mask and gloves during my encounter with the patient. Review of Systems: Review of Systems: SEE ABOVE. Heart Score: Risk Factors: Risk Factors: DM, Current or recent (<one month) smoker, HTN, HLP, family history of CAD, obesity. Risk Scores: Score 0 - 3: 2.5% MACE over next 6 weeks - Discharge Home Score 4 - 6: 20.3% MACE over next 6 weeks - Admit for Clinical Observation Score 7 - 10: 72.7% MACE over next 6 weeks - Early Invasive Strategies Allergies: Allergies: Allergies Coded Allergies Type Severity Reaction Last Updated Verified No Known Drug Allergies 10/07/17 No Physical Exam: PE: Constitutional: Well developed, well nourished, no acute distress, non-toxic appearance. [] HENT: Normocephalic, atraumatic, bilateral external ears normal, oropharynx moist, no oral exudates, nose normal. [] Eyes: PERRLA, EOMI, conjunctiva normal, no discharge. [] Neck: Normal range of motion, no tenderness, supple, no stridor. [] Cardiovascular:Heart rate regular rhythm, no murmur [] Lungs & Thorax: Bilateral breath sounds clear to auscultation [] Abdomen: Bowel sounds normal, soft, abdomen is soft and minimally tender in the right lower quadrant., no masses, no pulsatile masses. No CVA tenderness. No rebound tenderness or guarding. Skin: Warm, dry, no erythema, no rash. [] Back: No tenderness, no CVA tenderness. [] Extremities: No tenderness, no cyanosis, no clubbing, ROM intact, no edema. [] Neurologic: Alert and oriented X 3, normal motor function, normal sensory function, no focal deficits noted. [] Psychologic: Affect normal, judgement normal, mood normal. [] Current Patient Data: Labs: Laboratory Tests Test 07/14/19 07:59 POC Urine HCG, Qualitative Hcg negative (Negative) EKG: EKG: [] Radiology/Procedures: Radiology/Procedures: [] Course & Med Decision Making: Course & Med Decision Making Pertinent Labs and Imaging studies reviewed. (See chart for details) [] Dragon Disclaimer: Dragon Disclaimer: This electronic medical record was generated, in whole or in part, using a voice recognition dictation system. Departure Departure Impression: Primary Impression: Abdominal pain Disposition: HOME, SELF-CARE Condition: STABLE Referrals: NO PCP (PCP) Patient Instructions: Abdominal Pain (Nonspecific) JOSE A APODACA MD Jul 14, 2019 08:05
[2019-07-14 08:12] LABS: BILIRUBIN,URINE NEGATIVE (NEG); CLARITY,URINE CLEAR; COLOR,URINE YELLOW; NITRITE,URINE NEGATIVE (NEG); PH,URINE 6.5 (<5.0-8.0); PROTEIN,URINE NEGATIVE (NEG-TRACE); UROBILINOGEN,URINE 0.2 mg/dL (0.2 mg/dL)
[2019-07-14] MEDS: IV NORMAL SALINE 1000ML BAG 1,000 ML IV ONE (08:21)
[2019-07-14 08:24] LABS: BACTERIA,URINE 0 /HPF (0-FEW); RBC,URINE 0 /HPF (0-2); SQUAMOUS EPITHELIAL CELL,UR FEW /LPF; WBC,URINE 0 /HPF (0-4)
[2019-07-14 08:28] LABS: BASO % 1 % (0-3); EOS # 0.1 x10^3/uL (0.0-0.7); EOS % 1 % (0-3); HEMATOCRIT 41.1 % (36.0-47.0); HEMOGLOBIN 13.6 g/dL (12.0-15.5); LYMPH # 3.5 x10^3/uL (1.0-4.8); LYMPH % 35 % (24-48); MEAN CORPUSCULAR HEMOGLOBIN 28 pg (25-35); MEAN CORPUSCULAR HGB CONC 33 g/dL (31-37); MEAN CORPUSCULAR VOLUME 83 fL (79-100); MONO # 0.5 x10^3/uL (0.0-1.1); MONO % 5 % (0-9); NEUT # 5.8 x10^3/uL (1.8-7.7); NEUT % 58 % (31-73); PLATELET COUNT 287 x10^3/uL (140-400); RED BLOOD COUNT 4.94 x10^6/uL (3.50-5.40); RED CELL DISTRIBUTION WIDTH 13.9 % (11.5-14.5)
[2019-07-14 08:36] LABS: CALCIUM 8.7 mg/dL (8.5-10.1); CREATININE 0.8 mg/dL (0.6-1.0); GFR 88.9; POTASSIUM 3.9 mmol/L (3.5-5.1)
[2019-07-14 08:41] LABS: ALBUMIN 3.5 g/dL (3.4-5.0); ALBUMIN/GLOBULIN RATIO 0.9 (1.0-1.7); TOTAL BILIRUBIN 0.6 mg/dL (0.2-1.0); TOTAL PROTEIN 7.5 g/dL (6.4-8.2)
[2019-07-14] MEDS: IOHEXOL 300 MG/ML 100ML VIAL. IV ONE (08:50)
--- NOTE | 2019-07-14 09:20 | RAD ---
EXAM: CT Abdomen and Pelvis with IV contrast INDICATION: Abdominal pain right lower quadrant. TECHNIQUE: Multi-detector row CT images were acquired from the lung bases through the abdomen and pelvis with the use of IV contrast. Sagittal and coronal images were acquired from the transaxial data. All CT scans performed at this facility utilize dose optimization techniques as appropriate to the exam, including the following: Automated exposure control and adjustment of the mA and/or KV according to patient size (this includes techniques or standardized protocols for targeted exams where dose is indication/reason for exam). IV CONTRAST: Administered ORAL CONTRAST: Not administered COMPARISON: 04/30/2015 FINDINGS: LOWER CHEST: 6 mm noncalcified pulmonary nodule in the lateral left lower lobe (image 1 of series 2) is present. Otherwise lungs are unremarkable. LIVER: Mildly enlarged measuring 18.6 cm in craniocaudal extent with mild diffuse fatty infiltration. BILIARY SYSTEM: Gallbladder is surgically absent. Bile ducts are not dilated. PANCREAS: Unremarkable SPLEEN: Unremarkable ADRENALS: Unremarkable KIDNEYS & URETERS: Unremarkable BLADDER: Unremarkable REPRODUCTIVE ORGANS: An IUD is present. GASTROINTESTINAL: The stomach, small bowel, and colon are unremarkable. The appendix is normal. MESENTERY/PERITONEUM/RETROPERITONEUM: Unremarkable VASCULAR: Unremarkable LYMPH NODES: Minimally prominent ileocolic chain lymph nodes are identified. OSSEOUS & SOFT TISSUES: Unremarkable IMPRESSION: Normal CT of the abdomen and pelvis postcholecystectomy and IUD placement. No evidence of acute appendicitis or other acute findings to explain right lower quadrant abdominal pain. Electronically signed by: Salina Lewis MD (07/14/2019 9:17 AM) [id number]
[2019-07-14 09:27] VITALS: BP 126/78
[2019-07-14] MEDS: KETOROLAC 15 MG/ML VIAL. IVP ONE (09:42)
== END 2019-07-14 10:10 | disposition home or self-care (01) ==
LOC: ER 07:43
DX: R10.31 Right lower quadrant pain (principal); M54.9 Dorsalgia, unspecified; Z90.49 Acquired absence of other specified parts of digestive tract
CPT/HCPCS: 36415; 74177; 80053; 81001; 81025; 83690; 85025; 96374; 99285; J1885; J7030; Q9967